=== PATIENT | female | born 1950 | race Caucasian/White ===

== ENCOUNTER → 2016-12-31 | Day surgery (SDC) | payer OTHER ==
[2016-12-31 13:56] VITALS: RESP 16; TEMP 97.9; BMI 26.6
--- NOTE | 2016-12-31 15:12 | USB ---
EXAMINATION TYPE: US biopsy breast VAD LT DATE OF EXAM: 12/31/2016 CLINICAL HISTORY: R92.8 Abnormal mammo. TECHNIQUE: Ultrasound guided core biopsy of left breast. COMPARISON: Outside imaging -diagnostic left breast mammogram dated 12/24/2016, left breast ultrasound dated 12/24/2016, and screening mammogram dated 12/03/2016. FINDINGS: The procedure of ultrasound guided core biopsy was explained to the patient. Benefits, alternatives, and risks were discussed. An informed consent was then obtained. The patient was placed in supine positioning for imaging and for the procedure. The overlying skin was prepped and draped in usual sterile fashion. 20 cc of 1% lidocaine was used as anesthetic into the skin and subcutaneous tissue up to area of concern in the left breast. Under ultrasound guidance, a 12-gauge vacuum assisted biopsy gun device was used to obtain 7 core samples. Following this, a coil-shaped biopsy marker was left in lesion. This was well visualized under ultrasound and no postprocedure mammogram was obtained. The patient tolerated the procedure well without any immediate complication. The patient was kept in the radiology department for short stay after the procedure and then discharged home in stable condition. IMPRESSION: Successful, uncomplicated ultrasound guided core biopsy of a highly suspicious mass within the left breast, full pathology results to follow. Pathology Results: Malignant BREAST, LEFT, ULTRASOUND GUIDED CORE BIOPSY: INVASIVE DUCTAL CARCINOMA. Recommendation Surgical consult of the left breast. Consider MRI, tumor expected larger of mammogram than ultrasound. MTDD
[2016-12-31 16:38] VITALS: BP 138/82; PULSE 65
== END ==
LOC: RADUSWWP 13:22
PROVIDERS: ATTEND Surgery
DX: C50.912 Malignant neoplasm of unspecified site of left female breast (principal); M19.90 Unspecified osteoarthritis, unspecified site
CPT/HCPCS: 88305; 88342; 88341; 19083; J2001

== ENCOUNTER → 2017-01-18 | Outpatient (CLI) | payer MEDICARE ==
--- NOTE | 2017-01-18 13:55 | CT ---
EXAMINATION TYPE: CT ChestAbdPelvis w con DATE OF EXAM: 01/18/2017 COMPARISON: NONE HISTORY: Breast Ca CT DLP: 999.8 mGycm Automated exposure control for dose reduction was used. CONTRAST: CT scan of the chest, abdomen and pelvis is performed with Oral Contrast and with IV Contrast, patien t injected with 100 mL of Omnipaque 300. FINDINGS: There is abnormal increased soft tissue involving the left breast, skin thickening compatib le with underlying breast carcinoma. Left axillary node is enlarged measuring 14 mm in short axis. Mu ltiple smaller nodes also present greater on the left axilla than on the right LUNGS: The lungs are grossly clear, there is no concerning parenchymal mass or nodule identified. Sca ttered emphysematous changes are present. Minimal scarring in the medial aspect of the right middle l obe is suspected. There is no pleural effusion or pneumothorax seen. The tracheobronchial tree is p atent. MEDIASTINUM: There are no greater than 1 cm hilar or mediastinal lymph nodes. No pericardial effusi on is seen. There are some small prevascular nodes present. AORTA: No significant abnormality is seen. OTHER: No additional significant abnormality is seen. LIVER/GB: No significant abnormality is appreciated. PANCREAS: No significant abnormality is seen. SPLEEN: No significant abnormality is seen. ADRENALS: No significant abnormality is seen. KIDNEYS: No significant abnormality is seen. REPRODUCTIVE ORGANS: No gross abnormality seen. BOWEL: No significant abnormality is seen. FREE AIR: No Free Air visible. ASCITES: None seen. RETROPERITONEAL ADENOPATHY: No retroperitoneal adenopathy is seen. LYMPH NODES: No greater than 1 cm abdominal or pelvic lymph nodes are appreciated. URINARY BLADDER: Large amount of retained urine is present. Difficult to exclude a cystocele. PELVIC ADENOPATHY: None visualized. OSSEOUS STRUCTURES: No significant abnormality is seen. IMPRESSION: Findings compatible with patient's history of breast carcinoma. Left axillary adenopathy. Additional findings above.
--- NOTE | 2017-01-19 06:54 | BMR ---
EXAMINATION TYPE: MR breast BILAT wo/w con DATE OF EXAM: 01/18/2017 COMPARISON: Outside bilateral screening mammogram December 03, 2016 BI-RADS 0. Outside left breast ultr asound December 24, [address] chest abdomen and pelvis January 18, 2017. HISTORY: Invasive ductal carcinoma on ultrasound-guided core biopsy December 31, 2016 CONTRAST: Multiplanar, multisequence images of the breasts were acquired utilizing 8 mL intravenous Gadavist co ntrast. TECHNIQUE: A series of fat and water weighted images in the long and short axis views of both breasts are obtained in conjunction with dynamic contrast MRI with subtraction technique. Three-dimensional and additional postprocessing imaging is created on independent workstation and reviewed during offi cial interpretation of this study. FINDINGS: There are scattered fibroglandular tissue in the both breasts. There is fairly mild backgro und enhancement in right breast There is asymmetric left breast nipple retraction and skin thickening. There is asymmetric significa nt left-sided vascularity with enlarged vessels present. There is artifact from biopsy clip subareola r region image 320 series 702. There is large area of irregular masslike enhancement from skin surfac e at area of abnormal skin thickening centrally in left breast extending medially and more predominan tly to the lateral aspect, anterior posterior dimension is measured 8.7 cm. Transverse dimension is r oughly 6.0 cm and craniocaudal dimension is roughly 6.0 cm. There are suspicious lymph nodes in the l eft axilla, largest is 1.7 x 1.3 cm with loss of normal fatty hilum and correlates with CT axial imag e 11. Right breast shows no suspicious pathologic enhancement. Chest wall is intact bilaterally. No intrama mmary adenopathy is present. No significant cystic change is seen. No incidental findings outside the breasts identified. IMPRESSION: As suspected on ultrasound biopsy report, there is diffuse neoplastic involvement in left breast making patient likely noncandidate for lumpectomy. Suspicious left axillary lymph nodes are n oted. No MRI evidence for invasive malignancy in the right breast.
== END | disposition home or self-care (01) ==
LOC: RADNMMAIN 10:12
PROVIDERS: ATTEND Internal Medicine Hematology & Oncology
DX: C50.412 Malignant neoplasm of upper-outer quadrant of left female breast (principal); R59.0 Localized enlarged lymph nodes
CPT/HCPCS: 71260; 74177; 0159T; C8908; Q9967; A9581; 77059

== ENCOUNTER → 2017-01-21 | Outpatient (CLI) | payer MEDICARE ==
--- NOTE | 2017-01-21 14:50 | NM ---
EXAMINATION TYPE: NM bone scan whole body DATE OF EXAM: 01/21/2017 COMPARISON: Chest abdomen pelvis CT 01/18/2017 HISTORY: Breast cancer Delayed whole-body scanning was performed following the injection of 27 mCi Tc 99m MDP. Images acqui red approximately 3 hours post injection. Patient had originally received a dose of 26.6 mCi technetium 99m MDP intravenously on 18 January 2017 but did not return for imaging. FINDINGS: Normal soft tissue uptake. No abnormal increased or decreased radiopharmaceutical uptake to suggest m etastatic uptake in the axilla and mandible likely due to periodontal disease. Uptake within the knee s, shoulders is likely degenerative. IMPRESSION: Metastatic disease is not evident. Additional findings above.
== END | disposition home or self-care (01) ==
LOC: RADNMMAIN 10:11
PROVIDERS: ATTEND Internal Medicine Hematology & Oncology
DX: C50.112 Malignant neoplasm of central portion of left female breast (principal)
CPT/HCPCS: 78306; A9503

== ENCOUNTER 2017-01-29 10:00 | Day surgery (SDC) | payer MEDICARE ==
[~2017-01-29 10:00] MED LIST: Pre Op ABX Message 1 EACH MISC MISCELLANE ONE
[2017-01-29 10:40] VITALS: RESP 18; TEMP 97.6
[2017-01-29] MEDS ORDERED: LACTATED RINGERS 1,000 ML IV ONE (10:44)
[2017-01-29] MEDS ORDERED: DEXAMETHASONE SOD PHOSPHATE 10 MG/ML 1 ML VIAL IV ONE (10:44)
[2017-01-29] MEDS ORDERED: ONDANSETRON 4 MG/2 ML VIAL IVP ONE (10:44)
[2017-01-29] MEDS ORDERED: HYDROmorphone 0.5 MG/0.5 ML SYRINGE IVP PRN (10:44)
[2017-01-29] MEDS ORDERED: MIDAZOLAM 2 MG/2 ML VIAL IV PRN (10:44)
--- NOTE | 2017-01-29 10:45 | P.GSHP ---
History of Present Illness H&P Date: 01/29/17 Chief Complaint: Left breast cancer 66 years old female presents for Mediport insertion for chemotherapy. She has been recently diagnosed with left breast cancer. - Review of Systems Comment: All negative except stated in history of present illness Past Medical History Past Medical History: No Reported History History of Any Multi-Drug Resistant Organisms: None Reported Past Surgical History: Tubal Ligation Past Anesthesia/Blood Transfusion Reactions: No Reported Reaction Past Psychological History: No Psychological Hx Reported Smoking Status: Never smoker Medications and Allergies Home Medications Medication Instructions Recorded Confirmed Type Aspirin 1 tab PO DAILY 12/31/16 12/31/16 History Allergies Allergy/AdvReac Type Severity Reaction Status Date / Time No Known Allergies Allergy Verified 12/31/16 13:51 Surgical - Exam Vital Signs Temp Pulse Resp BP Pulse Ox 97.6 F 66 18 140/75 99 01/29/17 10:39 01/29/17 10:39 01/29/17 10:39 01/29/17 10:39 01/29/17 10:39 Patient is alert and oriented to time place and person and cooperative with exam. Chest bilateral breath sounds present Cardiovascular S1 and S2 heard no murmurs Assessment and Plan (1) Breast cancer, left Current Visit: Yes Status: Acute Code(s): C50.912 - MALIGNANT NEOPLASM OF UNSPECIFIED SITE OF LEFT FEMALE BREAST SNOMED Code(s): 838426253 Plan: 1. Insertion of right internal jugular Mediport under SonoSite and fluoroscopic guidance 2. The risks, benefits and potential complications including bleeding, infection, inadvertent arterial puncture were discussed with the patient 3. Ancef 2 g IV piggyback 1 4. Bilateral SCDs
[2017-01-29] MEDS ORDERED: LIDOCAINE 1% 20 ML VIAL (10MG/ML) FOR IV START IV ONE (11:00)
[2017-01-29] MEDS ORDERED: ceFAZolin 2 GM in SODIUM CHLORIDE 0.9% 100 ML IVPB ONE (12:03)
[2017-01-29] MEDS ORDERED: LIDOCAINE 1% INJ 10MG/ML (20 ML MDV) ONE (12:24)
[2017-01-29] MEDS ORDERED: PROPOFOL 10 MG/ML 20 ML VIAL IV ONE (12:24)
[2017-01-29] MEDS ORDERED: MIDAZOLAM 2 MG/2 ML VIAL ONE (12:24)
[2017-01-29] MEDS ORDERED: fentaNYL (PF) 50 MCG/ML 2 ML AMP ONE (12:24)
[2017-01-29] MEDS ORDERED: BUPIVACAINE-EPI 0.5%-1:200,000 10 ML VIAL SQ ONE ×2 (12:42)
--- NOTE | 2017-01-29 13:15 | P.OP ---
Date of Procedure: 01/29/17 Preoperative Diagnosis: Left breast cancer Postoperative Diagnosis: Same Procedure(s) Performed: Right internal jugular 8-Surinamese Mediport placement under SonoSite and fluoroscopic guidance Implants: 8-Surinamese lower port ,reference number [id number] Anesthesia: MAC, local Surgeon: Barbi Barragan Estimated Blood Loss (ml): 10 Pathology: none sent Condition: stable Disposition: PACU Indications for Procedure: 66 years old female presents with newly diagnosed left breast cancer. She is undergoing Mediport placement for neoadjuvant chemotherapy. Informed consent obtained and she elected to undergo right internal jugular Mediport placement under fluoroscopic and sonosite guidance Description of Procedure: The patient was brought to the operating room and placed in supine position with both arms tucked. A footboard was placed. Chlorhexidine was used to prep the neck followed by application of sterile drapes and an Ioban dressing . A timeout was performed to verify correct patient and correct procedure. Patient was confirmed to receive perioperative IV antibiotics and VTE prophylaxis. An ultrasound was performed of the right neck to identify the carotid artery and internal jugular vein. The internal jugular vein was compressible and patent . Photodocumentation was made. Local anesthetic was infiltrated to create a field block. Seldinger technique was used and the internal jugular vein was accessed under direct ultrasound guidance. There was good backflow of dark venous blood. The guidewire was inserted and fluoroscopic images obtained to confirm the tip in SVC. The needle was removed followed by insertion of a dilator peel-away sheath. Local anesthetic was infiltrated along the inferior aspect of the right clavicle. A 2.5 cm skin incision was made and dissection was carried up to the pectoralis major muscle. A pocket was created for the port. The catheter tubing was connected to the port using the conector after flushing both the port and the catheter with normal saline. The tunneling device was connected to the end of the catheter and after placement of the port in the subcutaneous pocket the tunneling device was passed from the lower incision to the counter incision in the neck. The catheter was measured at the junction of SVC and right atrium. The inner cannula of the peel-away sheath was removed and catheter was gradually inserted. The peel-away sheath was gradually removed. Fluoroscopic image confirmed the tip of the catheter at the junction of SVC and right atrium. There was no kink, fold or torsion of the catheter and the port. The Fisher needle was used to access the port and easy backflow was obtained. This was flushed with 10 mL of normal saline and 10 mL of Hep-Lock was inserted. The skin incision was closed in 3 layers using 3-0 Vicryl interrupted stitches and a running suture of 4-0 Monocryl. Counter incision in the neck was also closed using 3-0 Vicryl followed by 4-0 Monocryl. Dermabond skin glue was applied followed by Telfa and Tegaderm dressing. The sponge, instrument and needle count were correct x 2 Patient tolerated the procedure well and was taken to post anesthesia care unit in stable condition Final chest x-ray showed the tip of the catheter in SVC and no pneumothorax. Total fluoroscopic time was 3seconds
[2017-01-29 13:38] VITALS: PULSE 60
[2017-01-29 14:01] VITALS: BP 126/72
--- NOTE | 2017-01-29 14:07 | XR ---
EXAMINATION TYPE: XR chest 1V confirm line [facility] DATE OF EXAM: 01/29/2017 COMPARISON: NONE HISTORY: Mediport placement TECHNIQUE: Single frontal view of the chest is obtained. FINDINGS: Right-sided Mediport is present, distal tip of the catheter is overlying the superior vena cava. Some minimal atelectatic change suspected in the right midlung. There is no evident pneumothorax or pleural effusion. IMPRESSION: No evident complication status post Mediport placement.
--- NOTE | 2017-01-29 14:30 | FL ---
Fluoroscopy HISTORY: Central catheter placement 3 seconds fluoroscopy time supplied to the referring clinician. 1 intraoperative C-arm images docume nt the procedure. See dictated report from general surgery.
== END 2017-01-29 14:29 | disposition home or self-care (01) ==
LOC: OR 10:00
PROVIDERS: ATTEND Surgery
DX: C50.912 Malignant neoplasm of unspecified site of left female breast (principal); Z79.82 Long term (current) use of aspirin
CPT/HCPCS: 77001; 36561; C1788; J2250; J1100; J0690; J2405; J2001; J3010; J2704

== ENCOUNTER 2017-06-15 09:24 | Day surgery (SDC) | payer MEDICARE ==
[2017-06-14 09:33] VITALS: BMI 25.0
[~2017-06-15 09:24] MED LIST changes: +LACTATED RINGERS 1,000 ML IV SCH; +MIDAZOLAM 2 MG/2 ML VIAL IV PRN; +MORPHINE SULFATE 4 MG/ML SYRINGE IV PRN; +ONDANSETRON 4 MG/2 ML VIAL IVP ONE
[2017-06-15] MEDS ORDERED: ALPRAZolam 0.25 MG TAB PO ONE (10:35)
[2017-06-15] MEDS: DEXAMETHASONE SOD PHOSPHATE 10 MG/ML 1 ML VIAL IV ONE ×2 (11:24→17:49)
[2017-06-15] MEDS: HEPARIN SODIUM,PORCINE 5,000 UNIT/ML 1 ML VIAL SQ ONE ×2 (11:32→17:49)
[2017-06-15 12:28] LABS: HCT 35.3 % (34.0-46.0); HGB 11.9 gm/dL (11.4-16.0); MCH 32.8 pg (25.0-35.0); MCHC 33.7 g/dL (31.0-37.0); MCV 97.4 fL (80.0-100.0); Mean Platelet Volume 7.6; Platelet Count 212 k/uL (150-450); RBC 3.63 m/uL (3.80-5.40); WBC 4.7 k/uL (3.8-10.6)
--- NOTE | 2017-06-15 12:39 | NM ---
EXAMINATION TYPE: NM sentinel node injection DATE OF EXAM: 06/15/2017 COMPARISON: NONE HISTORY: Left breast cancer TECHNIQUE AND FINDINGS: The procedure of sentinel lymph node injection was explained to the patient. Overlying skin is cleaned with sterile alcohol. Following this, 505 uCi Tc99m Tilmanocept was inject ed into the upper outer aspect of the left nipple intradermally. The patient tolerated the procedure well without any immediate complication. The patient was kept in the radiology department for short stay after the procedure and then taken to surgery for surgical p rocedure what is presumed intraoperative gamma probe will be used for sentinel lymph node detection. IMPRESSION: Left breast radiotracer injection for sentinel node localization as above.
[2017-06-15] MEDS ORDERED: HEPARIN SODIUM,PORCINE 5,000 UNIT/ML 1 ML VIAL SQ ONE (12:41)
--- NOTE | 2017-06-15 12:51 | P.PN ---
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 The patient expressed some concerns that she could not have immediate breast reconstruction because she felt her insurance would not cover this. I assured her that insurance should cover, as this was a operation for cancer and not for cosmesis. She stated despite this, she did not want immediate reconstruction and she did not want reconstruction in the future and that just wanted the breast removed. She then had some concerns as to whether a lumpectomy could be performed, however she stated she did not want any radiation therapy. Although we had had these conversations previously in the office these concerns were addressed again today. She was adamant that she wanted the breast removed no reconstruction immediately or in the future and no lumpectomy. The family also concurred with this. Additionally we discussed removal of a Port-A-Cath patient wishes this to be removed the risks and benefits of removal were discussed with the patient. This was discussed with Dr. Thakur and he was in agreement. The patient's case was discussed at breast tumor Board and there was concurrence that mastectomy with sentinel node biopsy should be performed. After discussion with pathology it was determined that we would not did do a frozen section evaluation secondary to the fact that they felt that the changes related to chemotherapy may make interpretation difficult. All of these concerns had been addressed preoperatively with the patient and her as well. With the above information the plan is to proceed with the mastectomy and port a cath removal, and sentinel node biopsy. If there appeared to be clinically enlarged lymph nodes. Those will be removed at the same time. Patient and family understand risks and benefits and wished to proceed.
[2017-06-15 12:56] LABS: Band Neutrophils % 1 %; Basophils # (M) 0.05 k/uL (0-0.2); Eosinophils # (M) 0.38 k/uL (0-0.7); Lymphocytes # (M) 0.56 k/uL (1.0-4.8); Monocytes # (M) 0.38 k/uL (0-1.0); Neutrophils % (M) 70 %; Nucleated Red Blood Cells 0 /100 WBC (0-0); Total Cells Counted 100
[2017-06-15] MEDS ORDERED: KETOROLAC 30 MG/ML 1 ML VIAL ONE (13:13)
[2017-06-15] MEDS ORDERED: fentaNYL (PF) 50 MCG/ML 2 ML AMP ONE (13:13)
[2017-06-15] MEDS ORDERED: LIDOCAINE 1% INJ 10MG/ML (20 ML MDV) ONE (13:13)
[2017-06-15] MEDS ORDERED: ceFAZolin 1,000 MG VIAL ONE (13:13)
[2017-06-15] MEDS ORDERED: MIDAZOLAM 2 MG/2 ML VIAL ONE (13:13)
[2017-06-15] MEDS ORDERED: PROPOFOL 10 MG/ML 20 ML VIAL IV ONE (13:13)
[2017-06-15] MEDS ORDERED: SUCCINYLCHOLINE CHLORIDE 100 MG/5 ML SYR IV ONE (13:13)
[2017-06-15] MEDS ORDERED: MORPHINE SULFATE 10 MG/ML SYRINGE ONE (13:13)
[2017-06-15] MEDS ORDERED: ONDANSETRON 4 MG/2 ML VIAL ONE (13:13)
[2017-06-15] MEDS ORDERED: ePHEDrine SULFATE/0.9% NACL/PF 50 MG/5 ML SYRINGE IV ONE (13:13)
[2017-06-15] MEDS ORDERED: SODIUM CHLORIDE 0.9% 50 ML with ceFAZolin 2,000 MG IV ONE ×2 (13:41)
[2017-06-15] MEDS ORDERED: LACTATED RINGERS 1,000 ML IV ONE ×2 (14:10)
[2017-06-15] MEDS ORDERED: HYDROcodone/APAP 5-325MG 1 EACH TAB PO PRN (16:20)
[2017-06-15] MEDS ORDERED: MORPHINE SULFATE 4 MG/ML SYRINGE IV PRN (16:20)
[2017-06-15] MEDS ORDERED: NALOXONE 0.4 MG/ML 1 ML VIAL IV PRN (16:20)
[2017-06-15] MEDS ORDERED: ONDANSETRON 4 MG/2 ML VIAL IVP PRN (16:20)
--- NOTE | 2017-06-15 16:20 | P.OP ---
Date of Procedure: 06/15/17 Preoperative Diagnosis: Left breast cancer Postoperative Diagnosis: Same Procedure(s) Performed: Left breast lumpectomy, injection of methylene blue for sentinel node mapping, attempted sentinel node biopsy/removal of lower axillary contents, painting of specimen for orientation Removal of Port-A-Cath Anesthesia: JEANETTE Surgeon: Estella Blackwood Estimated Blood Loss (ml): 30 IV fluids (ml): 800 Pathology: other (Left breast, axillary contents) Condition: stable Disposition: PACU Indications for Procedure: Left breast cancer Operative Findings: Left breast cancer, fullness axilla with no definite sentinel node Description of Procedure: Patient was taken to the operating room and following induction of general anesthesia the left periareolar area was prepped using alcohol. Approximately 5 mL of half-strength methylene blue was injected in the breast was massaged. The left breast, axilla, and right chest wall were prepped and draped in a sterile fashion. The area of the Port-A-Cath was addressed initially. A small incision was made over the proximal catheter which was identified and withdrawn from the vein. Pressure was applied. The second incision was made over the port itself which was freed from the surrounding tissue and the Port-A-Cath was removed. After assured that hemostasis was attained the skin was closed using 4-0 Monocryl. Following this the left breast was approached. Superior and inferior skin flaps were elevated and dissection was carried down to the chest wall. The breast was dissected from medial to lateral being careful to maintain cyst using electrocautery device as well as the Harmonic scalpel and ligated and the vessels of concern. This was dissected to the area of the lateral border the pectoralis major muscle. The breast was then divided from the lateral border the pectoralis major muscle and removed. The axilla was then interrogated. Despite using the neoprobe and looking for a blue node as we had injected methylene blue preoperatively no definite sentinel node was identified. This may be due to the fibrotic reaction related to the tumor response to chemotherapy. Despite this palpable adenopathy was noted in the axilla. Therefore a axillary dissection was performed as the nodes were somewhat suspicious. The pectoralis minor muscle was followed superiorly to the axillary vein and the tissues were swept inferiorly being careful to identify and preserve the thoracodorsal and long thoracic nerves. There were multiple palpable nodules within the specimen none of which were radioactive or blue. After dissected the adenopathy of concern in the axilla was examined for hemostasis. After assured that hemostasis was attained as well irrigated. A TERELL drain was placed in the axilla as well as under the skin flaps. These were secured using nylon suture. The subcutaneous tissue was then closed using a Vicryl suture followed by closure of the skin with subcuticular 4 Monocryl. Steri-Strips were applied. Patient tolerated the procedure in stable condition. All instrument and sponge counts were correct at the end of the case.
[2017-06-15] MEDS: DEXTROSE 5%-0.45% NACL 1,000 ML IV SCH (18:04)
[2017-06-15] MEDS: HEPARIN SODIUM,PORCINE 5,000 UNIT/ML 1 ML VIAL SQ SCH (19:31)
--- NOTE | 2017-06-15 21:31 | P.CONS ---
History of Present Illness - Reason for Consult Consult date: 06/15/17 Medical management and postoperative care - Chief Complaint Admitted for mastectomy - History of Present Illness Patient is a 66 old female with a known history of right breast cancer status post chemotherapy and osteoarthritis of multiple joints was admitted to the hospital for left mastectomy. Patient underwent Left breast lumpectomy, injection of methylene blue for sentinel node mapping, attempted sentinel node biopsy/removal of lower axillary contents, painting of specimen for orientation. Also Removal of Port-A-Cath Patient tolerated the procedures well. Currently denied any complaints of chest pain or shortness of breath. No nausea vomiting or abdominal pain. No dizziness or lightheadedness. Review of Systems Constitutional: Patient denies any fever or chills . No generalized weakness or weight loss. Abdomen: Patient denied nausea vomiting and diarrhea and abdominal pain. Cardiovascular: Patient denies any chest pain or short of breath no palpitations. Respiratory: patient denied any cough is from production. No shortness of breath Neurologic: Patient denied any numbness or tingling headache. Musculoskeletal: Patient denies any complaints of joint swelling or deformity. Skin: Negative Psychiatric: Negative Endocrine: No heat or cold intolerance. No recent weight gain. Genitourinary: No dysuria or hematuria. All other 14 point ROS negative except the above Past Medical History Past Medical History: Cancer, Osteoarthritis (OA) Additional Past Medical History / Comment(s): Breast cancer. States losing finger nails and hands don't function properly due to chemotherapy. History of Any Multi-Drug Resistant Organisms: None Reported Past Surgical History: Tubal Ligation Additional Past Surgical History / Comment(s): BREAST BIOPSY Past Anesthesia/Blood Transfusion Reactions: No Reported Reaction Past Psychological History: No Psychological Hx Reported Smoking Status: Never smoker Past Alcohol Use History: None Reported Past Drug Use History: None Reported - Past Family History Mother Family Medical History: No Reported History Medications and Allergies Home Medications Medication Instructions Recorded Confirmed Type No Known Home Medications [No 06/14/17 06/15/17 History Known Home Medications] Allergies Allergy/AdvReac Type Severity Reaction Status Date / Time No Known Allergies Allergy Verified 06/15/17 10:04 Physical Exam Vitals: Vital Signs Temp Pulse Pulse Resp BP BP Pulse Ox 06/15/17 17:00 77 16 100/52 95 06/15/17 16:45 99 16 107/52 96 03/06/18 16:32 16 97/57 96 03/06/18 10:12 98.6 F 78 20 147/82 99 Intake and Output 06/15/17 06/15/17 06/15/17 06:59 14:59 22:59 Intake Total 1550 0 Output Total 25 Balance 1550 -25 Intake: IV 1550 0 Output: Estimated Blood Loss 25 Other: Weight 72.575 kg Patient Weight 06/16/17 06:59 Weight 72.575 kg PHYSICAL EXAMINATION: Patient is lying in the bed comfortably, no acute distress, awake alert and oriented.. HEENT: Normocephalic. Neck is supple. Pupils reactive. Nostrils clear. Oral cavity is moist. Ears reveal no drainage. Neck reveals no JVD, carotid bruits, or thyromegaly. CHEST EXAMINATION: Trachea is central. Symmetrical expansion. Lung [place] clear to auscultation and percussion. CARDIAC: Normal S1, S2 with no gallops. No murmurs . Left breast surgical area bandaged. ABDOMEN: Soft. Bowel sounds normal. No organomegaly. No abdominal bruits. Extremities: reveal no edema. No clubbing or cyanosis Neurologically awake, alert, oriented x3 with well-coordinated movements. No focal deficits noted Skin: No rash or skin lesions. Psychiatric: Coperative. Nonsuicidal Musculoskeletal: No joint swelling or deformity. Normal range of motion. Results CBC & Chem 7: 06/15/17 12:05 Labs: Abnormal Lab Results - Last 24 Hours (Table) 06/15/17 Range/Units 12:05 RBC 3.63 L (3.80-5.40) m/uL Lymphocytes # (Manual) 0.56 L (1.0-4.8) k/uL Assessment and Plan Assessment: Left breast lumpectomy and removal of lower axillary lymph nodes Left breast cancer with history of chemotherapy Osteoarthritis of multiple joints DVT prophylaxis with heparin subcu Plan: Patient will be continued on pain medications and bowel regimen. DVT prophylaxis. Incentive spirometry. We'll follow up closely and further recommendations as on the clinical course. We will repeat CBC and BMP tomorrow. Thank you for your consult.
[2017-06-16 06:57] LABS: HCT 31.8 % (34.0-46.0); HGB 10.5 gm/dL (11.4-16.0); MCH 32.1 pg (25.0-35.0); MCHC 33.1 g/dL (31.0-37.0); MCV 97.1 fL (80.0-100.0); Platelet Count 206 k/uL (150-450); RBC 3.28 m/uL (3.80-5.40); WBC 7.5 k/uL (3.8-10.6)
[2017-06-16 07:16] LABS: Anion Gap 9 mmol/L; Blood Urea Nitrogen 16 mg/dL (7-17); Calcium 9.3 mg/dL (8.4-10.2); Carbon Dioxide 27 mmol/L (22-30); Chloride 103 mmol/L (98-107); Glucose 114 mg/dL (74-99); Potassium 4.2 mmol/L (3.5-5.1); Sodium 139 mmol/L (137-145)
--- NOTE | 2017-06-16 08:17 | P.PN ---
Subjective Progress Note Date: 06/16/17 Patient is postop day #1 left modified radical mastectomy. At this time she is eating her breakfast doing well. She has no complaints. Her drains are serosanguineous. Objective - Vital Signs Vital signs: Vital Signs Temp 97.9 F 06/15/17 23:46 Pulse 79 06/15/17 23:46 Resp 18 06/15/17 23:46 BP 95/59 06/15/17 23:46 Pulse Ox 98 06/15/17 23:46 Intake & Output 06/15/17 06/16/17 06/16/17 18:59 06:59 18:59 Intake Total 1550 3120 Output Total 25 1630 Balance 1525 1490 Weight 72.575 kg Intake: IV 1550 Oral 3120 Output: Drainage 50 DRAIN 1 50 Urine 1580 Estimated Blood Loss 25 Other: # Voids 1 - Constitutional General appearance: Present: average body habitus - Respiratory Respiratory: bilateral: CTA - Cardiovascular Rhythm: regular Heart sounds: normal: S1, S2 - Integumentary Integumentary Comment(s): Incision clean and dry TERELL drains serosanguineous Dressing clean and dry from Port-A-Cath site removal - Psychiatric Psychiatric: Present: A&O x's 3, appropriate affect, intact judgment & insight - Labs CBC & Chem 7: 06/16/17 06:38 06/16/17 06:38 Labs: Abnormal Lab Results - Last 24 Hours (Table) 06/15/17 06/16/17 06/16/17 Range/Units 12:05 06:38 06:38 RBC 3.63 L 3.28 L (3.80-5.40) m/uL Hgb 10.5 L (11.4-16.0) gm/dL Hct 31.8 L (34.0-46.0) % Lymphocytes # (Manual) 0.56 L (1.0-4.8) k/uL Glucose 114 H (74-99) mg/dL Assessment and Plan Assessment: Impression/plan: 1. Postop day #1 left mastectomy and axillary node dissection 2. Patient doing well probable discharge home later today
--- NOTE | 2017-06-16 08:18 | P.DS ---
Providers Attending physician: Estella Blackwood Consults: 06/15/17 16:23 Consult Physician Routine Consulting Provider: Yogesh Mae Consult Reason/Comments: medical managment Do you want consulting provider notified?: Yes Primary care physician: Bogdan Leon Plan - Discharge Summary Discharge Rx Participant: Yes New Discharge Prescriptions: No Action No Known Home Medications [No Known Home Medications] Discharge Medication List No Known Home Medications [No Known Home Medications] 06/14/17 [History] Follow up Appointment(s)/Referral(s): Estella Blackwood MD [STAFF PHYSICIAN] - 1 Week Patient Instructions/Handouts: [facility]-Arnold Drain Care (GEN), Mastectomy (GEN) Activity/Diet/Wound Care/Special Instructions: Teach patient drain care Do not drive until seen by Dr. Andrade in one week With Chucho wrap at all times May shower after 48 hours
[2017-06-16 08:59] LABS: Lymphocytes # (M) 0.68 k/uL (1.0-4.8); Monocytes # (M) 0.68 k/uL (0-1.0); Neutrophils # (M) 6.15 k/uL (1.3-7.7); Neutrophils % (M) 82 %; Nucleated Red Blood Cells 0 /100 WBC (0-0); Total Cells Counted 100
[2017-06-16] MEDS ORDERED: PANTOPRAZOLE 40 MG/10 ML VIAL IV SCH (09:00)
[2017-06-16 09:43] VITALS: BP 106/63; PULSE 62; RESP 20; TEMP 97.1
[2017-06-16] MEDS: HEPARIN SODIUM,PORCINE 5,000 UNIT/ML 1 ML VIAL SQ SCH (10:52)
[2017-06-16] MEDS: DEXTROSE 5%-0.45% NACL 1,000 ML IV SCH (12:59)
== END 2017-06-16 13:30 ==
LOC: OR 09:24 → 6PED 16:29 → OR 06-16 13:30
PROVIDERS: ATTEND Surgery
DX: C50.912 Malignant neoplasm of unspecified site of left female breast (principal); Z92.21 Personal history of antineoplastic chemotherapy; M19.90 Unspecified osteoarthritis, unspecified site; Z80.3 Family history of malignant neoplasm of breast; Z80.0 Family history of malignant neoplasm of digestive organs; Z98.51 Tubal ligation status
CPT/HCPCS: 93005; 80048; 85025 ×2; 38792; 36590; 19302; A9520; J2250; J2270 ×2; J1644 ×2; J1100; J2405; J0690 ×2; J2001; J3010; J1885; J0330; J2704; C9113; 88307; 88309

== ENCOUNTER → 2017-10-04 | Outpatient (CLI) | payer OTHER, MEDICARE ==
--- NOTE | 2017-10-04 12:16 | BD ---
EXAMINATION TYPE: Axial Bone Density DATE OF EXAM: 10/04/2017 COMPARISON: NONE CLINICAL HISTORY: Height: 67 Weight: 166.3 FRAX RISK QUESTIONS: Alcohol (3 or more units per day): no Family History (Parent hip fracture): no Glucocorticoids (More than 3mos): no (Ex: prednisone, prednisolone, methylprednisolone, dexamethasone, and hydrocortisone). History of Fracture in Adulthood: no Secondary Osteoporosis: 1. Type 1 Diabetes: no 2. Hyperthyroidism: no 3. Menopause before 45: no 4. Malnutrition: no 5. Chronic liver disease: no Rheumatoid Arthritis: no Current Tobacco Use: no RISK FACTORS HISTORY OF: Family History of Osteoporosis: no Active: yes Diet low in dairy products/other sources of calcium: no Postmenopausal woman: sometime after age 46 Lost more than 2 inches in height since high school: no Frequent falls: no MEDICATIONS: anastrozole Additional History: pt had breast cancer 2017- chemo and radiation treatments EXAM MEASUREMENTS: Bone mineral densitometry was performed using the [employer] ([employer]) System. Bone mineral density as measured about the Lumbar spine is: ----- L1-L4(G/cm2): 1.039 T Score Values are as follows: ----- L2: -1.4 ----- L3: -1.5 ----- L4: -0.5 ----- L1-L4: -1.2 Bone mineral density : baseline Bone mineral density about the R hip (g/cm2): 0.875 Bone mineral density about the L hip (g/cm2): 0.906 T Score values are as follows: -----R Neck: -1.2 -----L Neck: -0.9 -----R Total: -1.3 -----L Total: -1.3 Bone mineral density : baseline IMPRESSION: Osteopenia (T Score between -2.5 and -1). There is slightly increased risk of fracture and the patient may be considered for treatment. Re-Screen 2-5 years. NOTE: T-SCORE=SD OF THE YOUNG ADULT MEAN.
== END | disposition home or self-care (01) ==
LOC: RADBDWWP 07:19
PROVIDERS: ATTEND Internal Medicine Hematology & Oncology
DX: C50.112 Malignant neoplasm of central portion of left female breast (principal); M85.80 Other specified disorders of bone density and structure, unspecified site; N95.1 Menopausal and female climacteric states; Z79.890 Hormone replacement therapy
CPT/HCPCS: 77080

== ENCOUNTER → 2018-01-07 | Outpatient (CLI) | payer OTHER ==
--- NOTE | 2018-01-07 12:48 | MM ---
Reason for exam: additional evaluation requested from prior study. History: Patient is postmenopausal and has history of breast cancer at age 66. Family history of breast cancer in paternal grandmother. Mastectomy of the left breast, June 2017. Malignant US biopsy breast VAD LT of the left breast, December 31, 2016. Chemotherapy. Radiation therapy. Taking antineoplastic beginning at age 66. Physical Findings: Nurse did not find any significant physical abnormalities on exam. MG Diagnostic Mammo RT w CAD CC and MLO view(s) were taken of the right breast. The breast tissue is heterogeneously dense. This may lower the sensitivity of mammography. Finding: There are stable, fine, grouped/clustered calcifications in the anterior position of the right breast. These results were verbally communicated with the patient and result sheet given to the patient on 01/07/18. ASSESSMENT: Benign, BI-RAD 2 RECOMMENDATION: Follow-up diagnostic mammogram of the right breast in 1 year.
== END | disposition home or self-care (01) ==
LOC: RADMAMWWP 10:53
PROVIDERS: ATTEND Radiology Radiation Oncology
DX: C50.412 Malignant neoplasm of upper-outer quadrant of left female breast (principal)
CPT/HCPCS: 77065

== ENCOUNTER → 2018-12-31 | Outpatient (CLI) | payer MEDICARE ==
--- NOTE | 2018-12-31 10:44 | CT ---
EXAMINATION TYPE: CT chest w con DATE OF EXAM: 12/31/2018 COMPARISON: 01/18/2017 HISTORY: Shortness of breath x 1 month. Some sternal pain that wraps around right side of back. Histo ry of breast cancer. CT DLP: 229.4 mGycm Automated exposure control for dose reduction was used. CONTRAST: CT scan of the chest is performed with IV Contrast, patient injected with 100 mL of Isovue M300. FINDINGS: LUNGS: Posttherapy fibrotic change noted anterior left lung. Scattered areas of subpleural fibrosis n oted. No distinct pulmonary nodule or mass. No focal consolidation. Scattered emphysematous bulla not edThere is no pleural effusion or pneumothorax seen. The tracheobronchial tree is patent. MEDIASTINUM: There are no greater than 1 cm hilar or mediastinal lymph nodes. No pericardial effusi on is seen. Thoracic aorta is of normal caliber. The heart is not enlarged. UPPER ABDOMEN: No significant abnormality appreciated. OTHER: Left-sided mastectomy changes noted. IMPRESSION: Posttherapy fibrotic change noted anterior left lung. Scattered areas of subpleural fibr osis noted. No distinct pulmonary nodule or mass. No focal consolidation.
== END | disposition home or self-care (01) ==
LOC: RADCTMAIN 07:50
PROVIDERS: ATTEND Internal Medicine Hematology & Oncology
DX: J84.10 Pulmonary fibrosis, unspecified (principal); J94.1 Fibrothorax; C50.112 Malignant neoplasm of central portion of left female breast
CPT/HCPCS: 71260; Q9967

== ENCOUNTER → 2019-01-13 | Outpatient (CLI) | payer OTHER ==
--- NOTE | 2019-01-13 09:21 | MM ---
Reason for exam: additional evaluation requested from prior study. Last mammogram was performed 1 year ago. History: Patient is postmenopausal and has history of breast cancer at age 66. Family history of breast cancer in paternal grandmother. Mastectomy of the left breast, June 2017. Malignant US biopsy breast VAD LT of the left breast, December 31, 2016. Chemotherapy. Radiation therapy. Taking antineoplastic beginning at age 66. Physical Findings: Nurse did not find any significant physical abnormalities on exam. MG Diagnostic Mammo RT w CAD CC and MLO view(s) were taken of the right breast. Prior study comparison: January 07, 2018, right breast MG diagnostic mammo RT w CAD. The breast tissue is heterogeneously dense. This may lower the sensitivity of mammography. Benign appearing calcifications in the right breast. No suspicious abnormality. These results were verbally communicated with the patient and result sheet given to the patient on 01/13/19. ASSESSMENT: Benign, BI-RAD 2 RECOMMENDATION: Follow-up diagnostic mammogram of the right breast in 1 year.
== END | disposition home or self-care (01) ==
LOC: RADMAMWWP 07:00
PROVIDERS: ATTEND Radiology Radiation Oncology
DX: Z00.6 Encounter for examination for normal comparison and control in clinical research program (principal); C50.412 Malignant neoplasm of upper-outer quadrant of left female breast; Z90.12 Acquired absence of left breast and nipple; Z79.811 Long term (current) use of aromatase inhibitors; Z17.0 Estrogen receptor positive status [ER+]
CPT/HCPCS: 77065

== ENCOUNTER → 2019-01-27 | Outpatient (CLI) | payer MEDICARE ==
--- NOTE | 2019-01-30 16:38 | PE ---
Nuclear medicine PET/CT HISTORY: Left breast cancer, subsequent Patient received 12.3 mCi F-18 FDG intravenously in delayed scanning was performed from the skull bas e to the mid thighs. Localization and attenuation correction CT scan was performed. Correlation CT chest 12/31/2018, CT 01/18/2017, breast MRI 01/18/2017 Neck and chest: There is no evident cervical or supraclavicular adenopathy. Patient is status post le ft mastectomy. No mediastinal, axillary, or hilar adenopathy. There is mild subcarinal and right brodie r uptake present, SUV 4.5, 4.9. Abnormal increased attenuation along the anterior left pleural margin at the upper lobe with some underlying minimal consolidation of lung is likely due to posttreatment change. No pleural or pericardial effusion. Some scattered emphysematous changes are present within t he right chest. ABDOMEN: There is no liver mass or retroperitoneal adenopathy evident. No adrenal mass. No suspicious hypermetabolic uptake. Osseous structures: There is some mild diffuse uptake involving the right clavicle with SUV 4.1 heali ng, right sternoclavicular joint. Arthropathy present at the acromioclavicular joint shows associated mild uptake. IMPRESSION: Mild subcarinal and right hilar uptake. Uptake along the right clavicle. Postop change.
== END | disposition home or self-care (01) ==
LOC: RADPETMAIN 14:36
PROVIDERS: ATTEND Internal Medicine Hematology & Oncology
DX: C50.112 Malignant neoplasm of central portion of left female breast (principal); R93.7 Abnormal findings on diagnostic imaging of other parts of musculoskeletal system; R91.8 Other nonspecific abnormal finding of lung field
CPT/HCPCS: 78815; A9552

== ENCOUNTER 2019-02-21 09:55 | Emergency (ER) | payer MEDICARE ==
[2019-02-21] MEDS ORDERED: SODIUM CHLORIDE 0.9% 500 ML 500 ML IV STA (10:26)
--- NOTE | 2019-02-21 11:19 | CT ---
EXAMINATION TYPE: CT brain wo con DATE OF EXAM: 02/21/2019 COMPARISON: None HISTORY: Right superior aspect headache. History of breast cancer. CT DLP: 1090.4 mGycm Automated exposure control for dose reduction was used. TECHNIQUE: CT scan of the head is performed without contrast. FINDINGS: There is a hyperdense approximately 1.2 x 1.5 cm right temporal lobe mass with surrounding vasogenic edema. This is seen near the zamoraon-white matter interface on image 14. This is likely hemorr hagic metastasis given the vasogenic edema. There are other subtle areas of right frontal hypoattenua tion in the white matter such as on image 13 and more focally on image 14. Small underlying metastase s are suspected. CSF attenuated fluid collection in the occipital lobe may be on the basis of a focal ly dilated ventricle or less likely prior infarct. Cystic metastasis is much less likely. No midline shift at this time. Punctate basal ganglia calcifications are seen. There is diffuse ventricular and sulcal prominence consistent with diffuse age-related cerebral atrop hy. There is low-attenuation in the periventricular white matter consistent with chronic small vesse l ischemic change. The globes are intact. Moderate mucosal thickening of the ethmoid and frontal sin uses and mild of the sphenoid and visualized superior maxillary sinuses. Mastoid air cells are well a erated. IMPRESSION: 1. Hyperdense right temporal mass most likely on the basis of hemorrhagic metastasis. CT or MRI with contrast could evaluate for enhancement of this mass and other suspected small right frontal masses. This is highly favored to represent hemorrhagic metastasis rather than a small area of intracranial, intraparenchymal hemorrhage given the rounded morphology and vasogenic edema. No midline shift at thi s time. 2. At least moderate pansinusitis.
[2019-02-21 11:21] LABS: HCT 40.4 % (34.0-46.0); HGB 13.5 gm/dL (11.4-16.0); MCH 32.2 pg (25.0-35.0); MCHC 33.4 g/dL (31.0-37.0); MCV 96.5 fL (80.0-100.0); Platelet Count 135 k/uL (150-450); RBC 4.19 m/uL (3.80-5.40); RDW 13.6 % (11.5-15.5); WBC 5.4 k/uL (3.8-10.6)
--- NOTE | 2019-02-21 11:23 | XR ---
EXAMINATION TYPE: XR chest 2V DATE OF EXAM: 02/21/2019 COMPARISON: 01/29/2017 HISTORY: Difficulty breathing TECHNIQUE: Frontal and lateral views of the chest are obtained. FINDINGS: Right-sided Mediport has been removed. New left perihilar bronchiectasis. Is no focal air space opacity, pleural effusion, or pneumothorax seen. The cardiac silhouette size is mildly enlarge d as seen on the prior. The osseous structures are intact. Moderate multilevel degenerative changes of the thoracic spine. IMPRESSION: New left perihilar bronchiectasis typically postinfectious or postinflammatory in etiolo gy. This could also relate to post radiation change in this patient with known prior left breast canc er.
--- NOTE | 2019-02-21 11:24 | ED ---
General Adult HPI - General Chief complaint: Shortness of Breath Stated complaint: Sob Time Seen by Provider: 02/21/19 10:13 Source: patient, RN notes reviewed, old records reviewed Mode of arrival: ambulatory Limitations: no limitations - History of Present Illness Initial comments: 68-year-old female patient with past history for breast cancer in remission presents to ED with chief complaint approximately 2 months of exertional dyspnea. Patient reports that when she gets herself while she becomes very short of breath. 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 The Cond shortness of breath. No chest pain this time. Patient does report that she occasionally gets right parietal headaches and has a area which is tender to touch. No skin changes. This has also been going on for approximately 2 months. Denies any other complaints. Systemic: Pt denies fatigue, fever/chills, rash. Pt denies weakness, night sweats, weight loss. Neuro: Pt denies headache, visual disturbances, syncope or pre-syncope. HEENT: Pt denies ocular discharge or irritation, otalgia, rhinorrhea, pharyngitis or notable lymphadenopathy. Cardiopulmonary: Pt denies chest pain, heart palpitations, dyspnea on exertion. Abdominal/GI: Pt denies abdominal pain, n/v/d. : Pt denies dysuria, burning w/ urination, frequency/urgency. Denies new onset urinary or bowel incontinence. MSK: Pt denies myalgia, loss of strength or function in extremities. Neuro: Pt denies new onset weakness, paresthesias. - Related Data Home Medications Medication Instructions Recorded Confirmed Anastrozole 1 mg PO HS 02/21/19 02/21/19 Allergies Allergy/AdvReac Type Severity Reaction Status Date / Time No Known Allergies Allergy Verified 02/21/19 10:42 Review of Systems ROS Statement: Those systems with pertinent positive or pertinent negative responses have been documented in the HPI. ROS Other: All systems not noted in ROS Statement are negative. Past Medical History Past Medical History: Cancer, Osteoarthritis (OA) Additional Past Medical History / Comment(s): Breast cancer. States losing finger nails and hands don't function properly due to chemotherapy. History of Any Multi-Drug Resistant Organisms: None Reported Past Surgical History: Tubal Ligation Additional Past Surgical History / Comment(s): BREAST BIOPSY, L mastecomy Past Anesthesia/Blood Transfusion Reactions: No Reported Reaction Past Psychological History: No Psychological Hx Reported Smoking Status: Never smoker Past Alcohol Use History: None Reported Past Drug Use History: None Reported - Past Family History Mother Family Medical History: No Reported History General Exam - General Exam Comments Initial Comments: Constitutional: NAD, AOX3, Pt has pleasant affect. HEENT: NC/AT, trachea midline, neck supple, no lymphadenopathy. Posterior pharynx non erythematous, without exudates. External ears appear normal, without discharge. Mucous membranes moist. Eyes PERRLA, EOM intact. There is no scleral icterus. No pallor noted. Cardiopulmonary: RRR, no murmurs, rubs or gallops, no JVD noted. Lungs CTAB in a nterior and posterior [place]. No peripheral edema. Abdominal exam: Abdomen soft and non-distended. Abdomen non-tender to palpation in all 4 quadrants. Bowel sounds active in LLQ. No hepatosplenomegaly. No ecchymosis Neuro: CN II-XII intact. No nuchal rigidity. No raccon eyes, no cuevas sign, no hemotympanum. No cervical spinal tenderness. MSK: Small area of right parietal lobe mildly tender. No skin changes. No fluctuance, no discharge. No tenderness in the area of temp oral artery, no palpable cord. No posterior calf tenderness bilaterally, homans sign negative bilaterally. Posterior tibialis and radial pulse +2 bilaterally. Sensation intact in upper and lower extremities. Full active ROM in upper and lower extremities, 5/5 stregnth. Limitations: no limitations Course Vital Signs 02/21/19 02/21/19 02/21/19 10:07 10:17 10:24 Temperature 98.2 F Pulse Rate 82 80 Respiratory 18 18 18 Rate Blood Pressure 133/80 O2 Sat by Pulse 97 96 Oximetry 02/21/19 11:00 Temperature Pulse Rate 81 Respiratory 18 Rate Blood Pressure 129/75 O2 Sat by Pulse 96 Oximetry Medical Decision Making - Medical Decision Making 68-year-old female patient with past history for breast cancer in remission presents to ED with chief complaint approximately 2 months of exertional dyspnea. Patient reports that when she gets herself while she becomes very short of breath. 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 The Cond shortness of breath. No chest pain this time. Patient does report that she occasionally gets right parietal headaches and has a area which is tender to touch. No skin changes. This has also been going on for approximately 2 months. Denies any other complaints. Patient vital signs are stable, afebrile. Physical exam displayed normal neurologic exam, no focal deficit, lungs clear to auscultation, leg nontender, nonerythematous. Laboratory investigations noncompressive. EKG nonischemic. Chest x-ray displayed new perihilar bronchiectasis likely postinfectious or post inflammatory in etiology. Could also relate to postradiation changes. CT brain without contrast displays hyperdense right temporal mass likely hemorrhagic metastasis. Strongly favored to represent hemorrhagic metastasis rather than other etiology. No midline shift. Sinusitis. Patient will be transferred to [facility] for neurosurgery. Discussed case with [facility] for neurosrugery for Dr. Lindquist and ER physician Dr. Diaz, who accepted. Patient agreeable transfer. Case discussed with Dr. Marsh. - Lab Data Result diagrams: 02/21/19 10:50 02/21/19 10:50 Lab Results 02/21/19 02/21/19 02/21/19 Range/Units 10:50 10:50 10:50 WBC 5.4 (3.8-10.6) k/uL RBC 4.19 (3.80-5.40) m/uL Hgb 13.5 (11.4-16.0) gm/dL Hct 40.4 (34.0-46.0) % MCV 96.5 (80.0-100.0) fL MCH 32.2 (25.0-35.0) pg MCHC 33.4 (31.0-37.0) g/dL RDW 13.6 (11.5-15.5) % Plt Count 135 L (150-450) k/uL Neutrophils % (Manual) 69 % Lymphocytes % (Manual) 20 % Monocytes % (Manual) 8 % Eosinophils % (Manual) 3 % Neutrophils # (Manual) 3.73 (1.3-7.7) k/uL Lymphocytes # (Manual) 1.08 (1.0-4.8) k/uL Monocytes # (Manual) 0.43 (0-1.0) k/uL Eosinophils # (Manual) 0.16 (0-0.7) k/uL Nucleated RBCs 0 (0-0) /100 WBC Manual Slide Review Performed PT 10.8 (9.0-12.0) sec INR 1.0 (<1.2) APTT 25.8 (22.0-30.0) sec Sodium 141 (137-145) mmol/L Potassium 4.4 (3.5-5.1) mmol/L Chloride 105 (98-107) mmol/L Carbon Dioxide 24 (22-30) mmol/L Anion Gap 12 mmol/L BUN 22 H (7-17) mg/dL Creatinine 0.79 (0.52-1.04) mg/dL Est GFR (CKD-EPI)AfAm >90 (>60 ml/min/1.73 sqM) Est GFR (CKD-EPI)NonAf 78 (>60 ml/min/1.73 sqM) Glucose 95 (74-99) mg/dL Calcium 9.8 (8.4-10.2) mg/dL Total Bilirubin 0.6 (0.2-1.3) mg/dL AST 64 H (14-36) U/L ALT 29 (9-52) U/L Alkaline Phosphatase 133 H (38-126) U/L Troponin I (0.000-0.034) ng/mL Total Protein 8.0 (6.3-8.2) g/dL Albumin 4.4 (3.5-5.0) g/dL 02/21/19 Range/Units 10:50 WBC (3.8-10.6) k/uL RBC (3.80-5.40) m/uL Hgb (11.4-16.0) gm/dL Hct (34.0-46.0) % MCV (80.0-100.0) fL MCH (25.0-35.0) pg MCHC (31.0-37.0) g/dL RDW (11.5-15.5) % Plt Count (150-450) k/uL Neutrophils % (Manual) % Lymphocytes % (Manual) % Monocytes % (Manual) % Eosinophils % (Manual) % Neutrophils # (Manual) (1.3-7.7) k/uL Lymphocytes # (Manual) (1.0-4.8) k/uL Monocytes # (Manual) (0-1.0) k/uL Eosinophils # (Manual) (0-0.7) k/uL Nucleated RBCs (0-0) /100 WBC Manual Slide Review PT (9.0-12.0) sec INR (<1.2) APTT (22.0-30.0) sec Sodium (137-145) mmol/L Potassium (3.5-5.1) mmol/L Chloride (98-107) mmol/L Carbon Dioxide (22-30) mmol/L Anion Gap mmol/L BUN (7-17) mg/dL Creatinine (0.52-1.04) mg/dL Est GFR (CKD-EPI)AfAm (>60 ml/min/1.73 sqM) Est GFR (CKD-EPI)NonAf (>60 ml/min/1.73 sqM) Glucose (74-99) mg/dL Calcium (8.4-10.2) mg/dL Total Bilirubin (0.2-1.3) mg/dL AST (14-36) U/L ALT (9-52) U/L Alkaline Phosphatase (38-126) U/L Troponin I 0.022 (0.000-0.034) ng/mL Total Protein (6.3-8.2) g/dL Albumin (3.5-5.0) g/dL Disposition Clinical Impression: Brain metastasis, Hemorrhage of brain, nontraumatic Disposition: OTHER INSTITUTION NOT DEFINED Condition: Critical Is patient prescribed a controlled substance at d/c from ED?: No Referrals: None,Stated [Primary Care Provider] - 1-2 days - Out of Hospital Transfer - Req. Specs Out of Hospital Transfer - Requested Specifics: Other Emergency Center ([facility])
[2019-02-21 11:25] LABS: ALT 29 U/L (9-52); AST 64 U/L (14-36); African American GFR (CKD) >90 (>60 ml/min/1.73 sqM); Albumin 4.4 g/dL (3.5-5.0); Alkaline Phosphatase 133 U/L (38-126); Anion Gap 12 mmol/L; Blood Urea Nitrogen 22 mg/dL (7-17); Calcium 9.8 mg/dL (8.4-10.2); Carbon Dioxide 24 mmol/L (22-30); Chloride 105 mmol/L (98-107); Glucose 95 mg/dL (74-99); Potassium 4.4 mmol/L (3.5-5.1); Sodium 141 mmol/L (137-145); Total Bilirubin 0.6 mg/dL (0.2-1.3)
[2019-02-21 11:28] LABS: Partial Thromboplastin Time 25.8 sec (22.0-30.0); Prothrombin Time 10.8 sec (9.0-12.0)
[2019-02-21 11:57] VITALS: PULSE 81
[2019-02-21 12:06] LABS: Eosinophils # (M) 0.16 k/uL (0-0.7); Lymphocytes # (M) 1.08 k/uL (1.0-4.8); Monocytes # (M) 0.43 k/uL (0-1.0); Neutrophils % (M) 69 %; Nucleated Red Blood Cells 0 /100 WBC (0-0); Total Cells Counted 100
[2019-02-21 13:01] VITALS: BP 130/70; RESP 19; TEMP 98.8
== END 2019-02-21 13:15 | disposition short-term general hospital (02) ==
LOC: EC 09:55
DX: C79.31 Secondary malignant neoplasm of brain (principal); I61.9 Nontraumatic intracerebral hemorrhage, unspecified; J47.9 Bronchiectasis, uncomplicated; J32.9 Chronic sinusitis, unspecified; J70.1 Chronic and other pulmonary manifestations due to radiation; Z85.3 Personal history of malignant neoplasm of breast; Z92.21 Personal history of antineoplastic chemotherapy; Z90.12 Acquired absence of left breast and nipple
CPT/HCPCS: 36415; 70450; 71046; 80053; 84484; 85025; 85610; 85730; 93005; 96360; 99285